=== PATIENT | female | born 1995 ===

== ENCOUNTER 2022-08-20 15:22 | Outpatient (CLI) | payer OTHER | END 2022-08-20 15:23 | disposition home or self-care (01) | LOC: BICULT 15:22 | PROVIDERS: ATTEND Advanced Practice Midwife | DX: Z34.92 Encounter for supervision of normal pregnancy, unspecified, second trimester (principal); Z3A.22 22 weeks gestation of pregnancy | CPT/HCPCS: 76805 ==